=== PATIENT | female | born 1995 | race Caucasian/White ===

== ENCOUNTER 2016-09-08 15:13 | Emergency (ER) | payer OTHER ==
--- NOTE | 2016-09-08 15:14 | EDPHY ---
H & P Constitutional: Initial Vital Signs Temperature (C) 36.5 C 09/08/16 15:15 Heart Rate 88 09/08/16 15:15 Respiratory Rate 16 09/08/16 15:15 Blood Pressure 107/65 09/08/16 15:15 O2 Sat (%) 94 09/08/16 15:15 O2 Delivery Mode Room Air Allergies/Adverse Reactions: cinnamon Allergy (Severe, Verified 09/08/16 15:27) Anaphylaxis cinnamon bark [From [id number]] Allergy (Severe, Verified 09/08/16 15:27) Anaphylaxis Home Medications: Medication Instructions Recorded HYDROcodone/APAP [Wheatley 1 - 2 each PO Q4-6PRN PRN #20 tab 09/08/16] Multivitamin 09/08/16 Medical Decision Making - Diagnostics Imaging Results: Imaging Impressions Cervical Spine CT 09/08/16 15:22 Impression: 1. No acute posttraumatic abnormality identified. If symptoms persist and clinical suspicion warrants, consider MRI. 2. Congenital spinal canal narrowing. Findings discussed with Charly Jon M.D., on September 08, 2016 at 1657. Imaging: Discussed imaging studies w/ call center assistant Radiologist ED Course/Re-evaluation: CHIEF COMPLAINT: Fall, neck pain HISTORY OF PRESENT ILLNESS: This patient is a 21 year old female arriving via EMS complaining of neck pain secondary to a mechanical fall this afternoon from a height of about 2ft. She was leaning out of a window at her home and fell onto the porch, striking her head and neck first. She denies loss of coconsciousness and remembers the entire incident. She visited her doctor in [place] after vomiting, who recommended transport to Emergency. EMS crews administered 100mg Fentanyl and 4mg Zofran, which reduced her pain from 8/10 to zero. EMS reports CMS intact on scene, vitals stable. Her pain has now increased to 5/10. She denies paresthesias, numbness, or weakness in her extremities. REVIEW OF SYSTEMS: A 10 point review of systems was performed and is negative with the exception of the elements mentioned in the history of present illness. PHYSICAL EXAM: HR, BP, O2 Sat, RR. Temp noted General Appearance: Alert, well hydrated, appropriate, and non-toxic appearing. Head: Atraumatic without scalp tenderness or obvious injury Eyes: Pupils equal, round, reactive to light and accommodation, EOMI, no trauma , no injection. Ears: Clear bilaterally, no perforation, normal landmarks Nose: Atraumatic, no rhinorrhea, clear. Throat: There is no erythema or exudates, no lesions, normal tonsils, mucus membranes moist. Neck: Point tenderness to top half of cervical spine, no lymphadenopathy. Respiratory: No retractions, no distress, no wheezes, and no accessory muscle use. Lungs are clear to auscultation bilaterally. Cardiovascular: Regular rate and rhythm. Good capillary refill all extremities. Gastrointestinal: Abdomen is soft, nontender, non-distended, no masses, no rebound, no guarding, no peritoneal signs. Musculoskeletal: Normal active ROM of all extremities, atraumatic. Neurological: Alert, appropriate, and interactive. The patient has normal DTRs and non-focal cranial nerves, motor, sensory, and cerebellar exam. Skin: No rashes, good turgor, no nodules on palpation. 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 DIFFERENTIAL DIAGNOSIS: The differential diagnosis for the patient's trauma and neck pain included but was not limited to musculoskeletal pain, spinal fracture, intracranial injury, strain, sprain. MEDICAL DECISION MAKIN:17 Met EMS at bedside. Physical exam reveals point tenderness to top half of cervical spine. No other trauma. Plan for noncontrast CT neck to assess for acute processes. Plan to administer 1mg IV Dilaudid for pain relief. 16:[address] Bridges, radiologist. CT neck negative for acute processes. Plan to discharge home in good condition with prescription for Wheatley for pain management. Referral to neurosurgery given for symptoms unresolved. Return precautions discussed. The patient is comfortable with this plan. - Data Points Laboratory Results: 09/08/16 15:25 Beta HCG, Qual NEGATIVE Medications Given: Discontinued Medications Hydromorphone HCl (Dilaudid) 1 mg IVP EDNOW ONE Stop: 09/08/16 16:12 Last Admin: 09/08/16 16:15 Dose: 1 mg Departure - Departure Disposition: Home, Routine, Self-Care Clinical Impression: Neck pain Condition: Good Instructions: Acute Neck Pain (ED) Additional Instructions: 1. Take Wheatley as prescribed as needed for severe pain. You may also take 600mg of ibuprofen every 6-8 hours as needed for pain. 2. You may follow up with neurosurgery for symptoms unresolved. We have referred you to our neurosurgeon information technology audit manager. 3. Return to the Emergency Department if you develop weakness, numbness, or tingling in your arms or legs, severe headache, fainting, or other worsening of condition. Referrals: Bonifacio Ackerman MD [Medical Doctor] - As per Instructions Steve Medina MD [Medical Doctor] - As per Instructions Prescriptions: HYDROcodone/APAP 10/325 [Wheatley 10/325] 1 - 2 each PO Q4-6PRN PRN #20 tab PRN Reason: Pain, Moderate Report Scribed for: Charly Jon Report Scribed by: Heather Pires Date of Report: 09/08/16 Time of Report: 16:08
[2016-09-08] MEDS ORDERED: HYDROmorphONE/DILAUDID 1 MG/ML SYR IVP ONE (16:11)
[2016-09-08 16:38] VITALS: RESP 16; TEMP 97.7
[2016-09-08 17:23] VITALS: BP 103/74; PULSE 81; O2SAT 97
== END 2016-09-08 17:21 | disposition home or self-care (01) ==
LOC: EDUNIT#
DX: S19.9XXA Unspecified injury of neck, initial encounter (principal); W17.89XA Other fall from one level to another, initial encounter; Y92.009 Unspecified place in unspecified non-institutional (private) residence as the place of occurrence of the external cause
CPT/HCPCS: 96374; J1170

== ENCOUNTER 2018-05-09 19:24 | Emergency (ER) | payer OTHER ==
[2018-05-09 19:30] VITALS: BP 119/82
[2018-05-09] MEDS ORDERED: SULFAMETHOX/TMP 800/160 MG 1 TAB PO ONE (19:46)
--- NOTE | 2018-05-09 19:48 | EDPHY ---
H & P Stated Complaint: Cut on back of R heel from weeks ago, swelling, pain, discharge Time Seen by Provider: 05/09/18 19:35 HPI/ROS: CHIEF COMPLAINT: Wound infection HISTORY OF PRESENT ILLNESS: The patient is a 23-year-old female who comes to the emergency department complain infected wound to her right Achilles area. She states that she poked herself with a safety pin 2 weeks ago trying to fix her shoes. 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 She is able to ambulate without difficulty. No tenderness to the Achilles tendon or heel or calf. No other injuries. She denies any history of immunocompromise although she states she did have urosepsis last year. Severity: Moderate Modifying factors: Worsening REVIEW OF SYSTEMS: Constitutional: denies: chills, fever, recent illness, recent injury EENTM: denies: blurred vision, double vision, nose congestion Respiratory: denies: cough, shortness of breath Cardiac: denies: chest pain, irregular heart rate, lightheadedness, palpitations Gastrointestinal/Abdominal: denies: abdominal pain, diarrhea, nausea, vomiting, blood streaked stools Genitourinary: denies: dysuria, frequency, hematuria, pain Musculoskeletal: denies: joint pain, muscle pain Skin: See above Neurological: denies: headache, numbness, paresthesia, tingling, dizziness, weakness Hematologic/Lymphatic: denies: blood clots, easy bleeding, easy bruising Immunologic/allergic: denies: HIV/AIDS, transplant 10 systems reviewed and negative except as noted EXAM: GENERAL: Well-appearing, well-nourished and in no acute distress. HEAD: Atraumatic, normocephalic. EYES: Pupils equal round and reactive to light, extraocular movements intact, sclera anicteric, conjunctiva are normal. ENT: TMs normal, nares patent, oropharynx clear without exudates. Moist mucous membranes. NECK: Normal range of motion, supple without lymphadenopathy or JVD. LUNGS: Breath sounds clear to auscultation bilaterally and equal. No wheezes rales or rhonchi. HEART: Regular rate and rhythm without murmurs, rubs or gallops. ABDOMEN: Soft, nontender, normoactive bowel sounds. No guarding, no rebound. No masses appreciated. BACK: No CVA tenderness, no spinal tenderness, step-offs or deformities EXTREMITIES: Normal range of motion, no pitting or edema. No clubbing or cyanosis. NEUROLOGICAL: Cranial nerves II through XII grossly intact. Normal speech, normal gait. 5/5 strength, normal movement in all extremities, normal sensation , normal reflexes PSYCH: Normal mood, normal affect. SKIN: Patient has a 1 x 1 cm ulcerated purulent lesion with surrounding erythema about 1 cm. Slightly fluctuant. Does not appear to involve the Achilles tendon or joint. Source: Patient Exam Limitations: No limitations - Personal History LMP (Females 10-55): Irregular Current Tetanus Diphtheria and Acellular Pertussis (TDAP): Yes Tetanus Vaccine Date: 2015 - Medical/Surgical History Hx Asthma: Yes Hx Chronic Respiratory Disease: No Hx Diabetes: No Hx Cardiac Disease: No Hx Renal Disease: No Hx Cirrhosis: No Hx Alcoholism: No Hx HIV/AIDS: No Hx Splenectomy or Spleen Trauma: No Other PMH: TONSIL, DENTAL SURG, EXERCISE INDUCED ASTHMA. appendectomy, head inj /concussion, lyme disease, kristi's, pneumonia after appendectomy - Family History Significant Family History: No pertinent family hx - Social History Smoking Status: Never smoked Alcohol Use: None Constitutional: Initial Vital Signs Temperature (C) 36.9 C 05/09/18 19:28 Heart Rate 92 05/09/18 19:28 Respiratory Rate 18 05/09/18 19:28 Blood Pressure 119/82 H 05/09/18 19:28 O2 Sat (%) 97 05/09/18 19:28 O2 Delivery Mode Room Air Allergies/Adverse Reactions: cinnamon Allergy (Severe, Verified 05/09/18 19:28) Anaphylaxis cinnamon bark [From [email or web address]] Allergy (Severe, Verified 05/09/18 19:28) Anaphylaxis Home Medications: Medication Instructions Recorded Multivitamin 09/08/16 Sulfamethox/Tmp 800/160 mg 1 tab PO BID #14 tab 05/09/18 [Bactrim Ds] Medical Decision Making Procedures: Procedure: Wound I&D. The patient's wound was located on the right foot. I obtained verbal consent from the patient to drain the abscess who was informed about the possibility of bleeding and pain. The abscess was incised with forceps and a small amount of purulent drainage was expressed. I irrigated the wound and placed some subdural gauze and antibiotic ointment. The patient tolerated the procedure well. The procedure was performed by myself. ED Course/Re-evaluation: The patient appears to have an infected wound on her left leg. I was able to express some purulence and of sent for cultures. I will unroof her lesion I will clean and bandage it with sterile dressings. Will start her on Bactrim. Discussed follow-up and indications for returning. Differential Diagnosis: Partial list of the Differential diagnosis considered include but were not limited to; wound infection, abscess and although unlikely based on the history and physical exam, I also considered tendon infection, joint infection, sepsis endocarditis. I discussed these differential diagnoses and the plan with the patient as well as the usual and expected course. The patient understands that the diagnosis is provisional and that in medicine we are not always correct and that further workup is often warranted. Usual and customary warnings were given. All of the patient's questions were answered. The patient was instructed to return to the emergency department should the symptoms at all worsen or return, otherwise to followup with the physician as we discussed. Departure - Departure Disposition: Home, Routine, Self-Care Clinical Impression: Wound infection Condition: Fair Instructions: Wound Infection (ED) Referrals: NONE *PRIMARY CARE P,. [Primary Care Provider] - As per Instructions Saad Musa MD [[facility] Primary Care Provider] - 5-7 days, if not improved Prescriptions: Sulfamethox/Tmp 800/160 mg [Bactrim Ds] 1 tab PO BID #14 tab
== END 2018-05-09 20:15 | disposition home or self-care (01) ==
PROC: 0H9MXZZ Drainage of Right Foot Skin, External Approach (ICD-10-PCS; principal; 2018-05-09)
DX: L02.611 Cutaneous abscess of right foot (principal); L08.9 Local infection of the skin and subcutaneous tissue, unspecified

== ENCOUNTER 2018-05-10 15:07 | Emergency (ER) | payer OTHER ==
[2018-05-10] MEDS ORDERED: ACETAMINOPHEN 500 MG TAB PO ONE (16:36)
[2018-05-10] MEDS ORDERED: IBUPROFEN 600 MG TAB PO ONE (16:36)
[2018-05-10] MEDS ORDERED: FLUCONAZOLE 150 MG TAB PO ONE (17:24)
--- NOTE | 2018-05-10 17:28 | EDPHY ---
H & P Stated Complaint: R ankle infection, seen yesterday, worse today. Time Seen by Provider: 05/10/18 17:15 HPI/ROS: CHIEF COMPLAINT: Wound infection HISTORY OF PRESENT ILLNESS: The patient is a 23-year-old female who I saw last night concerned about a wound to her right foot. I saw her yesterday and on roofed the wound and sent cultures and started on antibiotics. The the patient comes back today stating that she noticed lymph node in her right inguinal area and that she is concerned that she has a yeast infection. No abdominal pain. No vomiting. No fever. Severity: Moderate Modifying factors: None REVIEW OF SYSTEMS: Constitutional: denies: chills, fever, recent illness, recent injury EENTM: denies: blurred vision, double vision, nose congestion Respiratory: denies: cough, shortness of breath Cardiac: denies: chest pain, irregular heart rate, lightheadedness, palpitations Gastrointestinal/Abdominal: denies: abdominal pain, diarrhea, nausea, vomiting, blood streaked stools Genitourinary: denies: dysuria, frequency, hematuria, pain Musculoskeletal: denies: joint pain, muscle pain Skin: See HPI Neurological: denies: headache, numbness, paresthesia, tingling, dizziness, weakness Hematologic/Lymphatic: See HPI Immunologic/allergic: denies: HIV/AIDS, transplant 10 systems reviewed and negative except as noted EXAM: GENERAL: Well-appearing, well-nourished and in no acute distress. HEAD: Atraumatic, normocephalic. EYES: Pupils equal round and reactive to light, extraocular movements intact, sclera anicteric, conjunctiva are normal. ENT: TMs normal, nares patent, oropharynx clear without exudates. Moist mucous membranes. NECK: Normal range of motion, supple without lymphadenopathy or JVD. LUNGS: Breath sounds clear to auscultation bilaterally and equal. No wheezes rales or rhonchi. HEART: Regular rate and rhythm without murmurs, rubs or gallops. ABDOMEN: Soft, nontender, normoactive bowel sounds. No guarding, no rebound. No masses appreciated. BACK: No CVA tenderness, no spinal tenderness, step-offs or deformities EXTREMITIES: Right inguinal lymphadenopathy, mildly tender. Normal range of motion, no pitting or edema. No clubbing or cyanosis. NEUROLOGICAL: Cranial nerves II through XII grossly intact. Normal speech, normal gait. 5/5 strength, normal movement in all extremities, normal sensation , normal reflexes PSYCH: Normal mood, normal affect. SKIN: Skin wound improved compared to yesterday. Source: Patient Exam Limitations: No limitations - Personal History LMP (Females 10-55): 1-7 Days Ago Current Tetanus Diphtheria and Acellular Pertussis (TDAP): Yes Tetanus Vaccine Date: 2015 - Medical/Surgical History Hx Asthma: Yes Hx Chronic Respiratory Disease: No Hx Diabetes: No Hx Cardiac Disease: No Hx Renal Disease: No Hx Cirrhosis: No Hx Alcoholism: No Hx HIV/AIDS: No Hx Splenectomy or Spleen Trauma: No Other PMH: TONSIL, DENTAL SURG, EXERCISE INDUCED ASTHMA. appendectomy, head inj /concussion, lyme disease, kristi's, pneumonia after appendectomy - Family History Significant Family History: No pertinent family hx - Social History Smoking Status: Never smoked Alcohol Use: None Constitutional: Initial Vital Signs Temperature (C) 36.8 C 05/10/18 15:22 Heart Rate 78 05/10/18 15:22 Respiratory Rate 18 05/10/18 15:22 Blood Pressure 119/72 05/10/18 15:22 O2 Sat (%) 98 05/10/18 15:22 O2 Delivery Mode Room Air Allergies/Adverse Reactions: cinnamon Allergy (Severe, Verified 05/10/18 15:25) Anaphylaxis cinnamon bark [From [id number]] Allergy (Severe, Verified 05/10/18 15:25) Anaphylaxis Home Medications: Medication Instructions Recorded Multivitamin 09/08/16 Sulfamethox/Tmp 800/160 mg 1 tab PO BID #14 tab 05/09/18 [Bactrim Ds] Cephalexin [Keflex] 500 mg PO TID #21 cap 05/10/18 Medical Decision Making ED Course/Re-evaluation: Patient's wound appears improved compared to last night. She has taken 2 doses of her Bactrim. She wishes to have her urine sent for urinalysis. We will do this although Bactrim would treat majority of urine infections as well. She states that she frequently gets yeast infections on antibiotics. Will treat with Diflucan. She is not febrile. She is not septic appearing. She was treated with Tylenol ibuprofen for pain at triage. Encouraged her to continue taking the antibiotics. She feels comfortable with this. Patient's urinalysis is positive we will add Keflex. Differential Diagnosis: Partial list of the Differential diagnosis considered include but were not limited to; wound infection, UTI, yeast infection and although unlikely based on the history and physical exam, I also considered sepsis, PID, tubo-ovarian abscess, . I discussed these differential diagnoses and the plan with the patient as well as the usual and expected course. The patient understands that the diagnosis is provisional and that in medicine we are not always correct and that further workup is often warranted. Usual and customary warnings were given. All of the patient's questions were answered. The patient was instructed to return to the emergency department should the symptoms at all worsen or return, otherwise to followup with the physician as we discussed. - Data Points Laboratory Results: 05/10/18 17:28 Urine RBC 5-10 /hpf H /hpf (0-3) Urine WBC 50-182 /hpf H /hpf (0-3) Ur Epithelial Cells 3+ /lpf H /lpf (NONE-1+) Urine Bacteria TRACE /hpf H /hpf (NONE SEEN) Urine Mucus TRACE /lpf /lpf (NONE-1+) Medications Given: Discontinued Medications Acetaminophen (Tylenol) 1,000 mg PO EDNOW ONE Stop: 05/10/18 16:37 Last Admin: 05/10/18 16:38 Dose: 1,000 mg Fluconazole (Diflucan) 150 mg PO EDNOW ONE Stop: 05/10/18 17:25 Last Admin: 05/10/18 17:27 Dose: 150 mg Ibuprofen (Motrin) 600 mg PO EDNOW ONE Stop: 05/10/18 16:37 Last Admin: 05/10/18 16:37 Dose: 600 mg Departure - Departure Disposition: Home, Routine, Self-Care Clinical Impression: Wound infection, Yeast infection, Urinary tract infection Condition: Fair Instructions: Wound Infection (ED), Yeast Infection (ED), Urinary Tract Infection in Women (ED) Referrals: Saad Musa MD [Primary Care Provider] - As per Instructions Prescriptions: Cephalexin [Keflex] 500 mg PO TID #21 cap
[2018-05-10] MEDS ORDERED: CEPHALEXIN 500 MG CAP PO ONE (17:49)
[2018-05-10 18:19] VITALS: BP 116/84
== END 2018-05-10 18:19 | disposition home or self-care (01) ==
DX: L08.9 Local infection of the skin and subcutaneous tissue, unspecified (principal); S91.301D Unspecified open wound, right foot, subsequent encounter; B37.9 Candidiasis, unspecified; N39.0 Urinary tract infection, site not specified

== ENCOUNTER 2018-05-18 19:55 | Emergency (ER) | payer OTHER ==
[2018-05-18] MEDS ORDERED: TRIAMCINOLONE 0.5% 15GM CREAM TP ONE (21:20)
[2018-05-18] MEDS ORDERED: diphenhydrAMINE 25 MG CAP PO ONE (21:20)
--- NOTE | 2018-05-18 21:24 | EDPHY ---
H & P Stated Complaint: Allergic Reaction Time Seen by Provider: 05/18/18 21:10 HPI/ROS: CHIEF COMPLAINT: Rash HISTORY OF PRESENT ILLNESS: Patient is a 23-year-old female who I saw twice last week for a skin infection to the back of her right heel. She was initially treated with Bactrim and I unroofed the lesion and sent for cultures that came back for group a strep. She came back the next day concerned that her wound had not yet improved. We discussed wound healing expectations. At that time she also complained of urinary symptoms and had a positive urine. I added Keflex to her regimen as well as Diflucan. Her urine culture came back as contamination. She states that she has been doing well and the wound has been healing and she finished the antibiotics yesterday. Today however she broke out in a macular papular rash on her legs and arms and buttocks. No fever. No mucosal involvement. No involvement of palms or soles. No facial involvement. No headache. No meningismus. It is pruritic. She has not taken any medications. Severity: Moderate Modifying factors: None REVIEW OF SYSTEMS: Constitutional: denies: chills, fever, recent illness, recent injury EENTM: denies: blurred vision, double vision, nose congestion Respiratory: denies: cough, shortness of breath Cardiac: denies: chest pain, irregular heart rate, lightheadedness, palpitations Gastrointestinal/Abdominal: denies: abdominal pain, diarrhea, nausea, vomiting, blood streaked stools Genitourinary: denies: dysuria, frequency, hematuria, pain Musculoskeletal: denies: joint pain, muscle pain Skin: See HPI Neurological: denies: headache, numbness, paresthesia, tingling, dizziness, weakness Hematologic/Lymphatic: denies: blood clots, easy bleeding, easy bruising Immunologic/allergic: denies: HIV/AIDS, transplant 10 systems reviewed and negative except as noted EXAM: GENERAL: Well-appearing, well-nourished and in no acute distress. HEAD: Atraumatic, normocephalic. EYES: Pupils equal round and reactive to light, extraocular movements intact, sclera anicteric, conjunctiva are normal. ENT: TMs normal, nares patent, oropharynx clear without exudates. Moist mucous membranes. NECK: Normal range of motion, supple without lymphadenopathy or JVD. LUNGS: Breath sounds clear to auscultation bilaterally and equal. No wheezes rales or rhonchi. HEART: Regular rate and rhythm without murmurs, rubs or gallops. ABDOMEN: Soft, nontender, normoactive bowel sounds. No guarding, no rebound. No masses appreciated. BACK: No CVA tenderness, no spinal tenderness, step-offs or deformities EXTREMITIES: Normal range of motion, no pitting or edema. No clubbing or cyanosis. NEUROLOGICAL: Cranial nerves II through XII grossly intact. Normal speech, normal gait. 5/5 strength, normal movement in all extremities, normal sensation , normal reflexes PSYCH: Normal mood, normal affect. SKIN: Diffuse maculopapular rash with excoriation. Consistent with viral syndrome verses scarlet fever. Nonblanching. No bulle. No sloughing. No mucosal involvement. Source: Patient Exam Limitations: No limitations - Personal History LMP (Females 10-55): 8-14 Days Ago Current Tetanus/Diphtheria Vaccine: Yes Current Tetanus Diphtheria and Acellular Pertussis (TDAP): Yes Tetanus Vaccine Date: 2015 - Medical/Surgical History Hx Asthma: Yes Hx Chronic Respiratory Disease: No Hx Diabetes: No Hx Cardiac Disease: No Hx Renal Disease: No Hx Cirrhosis: No Hx Alcoholism: No Hx HIV/AIDS: No Hx Splenectomy or Spleen Trauma: No Other PMH: TONSIL, DENTAL SURG, EXERCISE INDUCED ASTHMA. appendectomy, head inj /concussion, lyme disease, kristi's, pneumonia after appendectomy - Family History Significant Family History: No pertinent family hx - Social History Smoking Status: Never smoked Alcohol Use: None Constitutional: Initial Vital Signs Temperature (C) 36.7 C 05/18/18 20:00 Heart Rate 82 05/18/18 20:00 Respiratory Rate 18 05/18/18 20:00 Blood Pressure 124/78 H 05/18/18 20:00 O2 Sat (%) 98 05/18/18 20:00 O2 Delivery Mode Room Air Allergies/Adverse Reactions: cinnamon Allergy (Severe, Verified 05/18/18 20:00) Anaphylaxis cinnamon bark [From [id number]] Allergy (Severe, Verified 05/18/18 20:00) Anaphylaxis Home Medications: Medication Instructions Recorded NK [No Known Home Meds] 05/18/18 Medical Decision Making ED Course/Re-evaluation: 9:20 p.m. The patient has symptoms consistent with scarlet fever. I will treat her with Benadryl and steroid cream. We discussed indications for returning. It is also consistent with viral syndrome however she is not currently having any viral symptoms. Does not seem consistent with an allergic reaction. Differential Diagnosis: Partial list of the Differential diagnosis considered include but were not limited to; scratch fever, viral exanthem, folliculitis and although unlikely based on the history and physical exam, I also considered urticaria, erythema marginatum, [place] Mayank's. I discussed these differential diagnoses and the plan with the patient as well as the usual and expected course. The patient understands that the diagnosis is provisional and that in medicine we are not always correct and that further workup is often warranted. Usual and customary warnings were given. All of the patient's questions were answered. The patient was instructed to return to the emergency department should the symptoms at all worsen or return, otherwise to followup with the physician as we discussed. - Data Points Medications Given: Discontinued Medications Diphenhydramine HCl (Benadryl) 50 mg PO EDNOW ONE Stop: 05/18/18 21:21 Last Admin: 05/18/18 21:39 Dose: 50 mg Triamcinolone (Triamcinolone 0.5% Cream) 1 melinda TP EDNOW ONE Stop: 05/18/18 21:21 Last Admin: 05/18/18 21:48 Dose: 1 melinda Departure - Departure Disposition: Home, Routine, Self-Care Clinical Impression: Scarlet fever Condition: Fair Instructions: Scarlet Fever (ED) Additional Instructions: Take Benadryl in use steroid cream as needed. Return if she developed fever blistering or any involvement of your mouth or lips.. Referrals: Veronique Ragland MD [Primary Care Provider] - As per Instructions Stand Alone Forms: School Excuse, Work Excuse
[2018-05-18 22:01] VITALS: BP 129/78
== END 2018-05-18 22:01 | disposition home or self-care (01) ==
DX: A38.9 Scarlet fever, uncomplicated (principal); Z87.2 Personal history of diseases of the skin and subcutaneous tissue

== ENCOUNTER → 2018-06-28 | Outpatient (CLI) | payer OTHER | LOC: BMCIMAGING 14:23 | PROVIDERS: ATTEND Internal Medicine | DX: R05 Cough (principal); R42 Dizziness and giddiness ==